=== PATIENT | female | born 1950 | race Caucasian/White ===

== ENCOUNTER 2017-03-25 17:26 | Observation (INO) ==
[2017-03-25] MEDS ORDERED: Naloxone 0.4 MG/ML INJ IVP PRN (22:40)
[2017-03-25] MEDS ORDERED: Acetaminophen 325 MG TABLET PO PRN (22:40)
[2017-03-25] MEDS ORDERED: ALPRAZolam 0.5 MG TABLET PO PRN (22:44)
[2017-03-25] MEDS ORDERED: cloNIDine HCl 0.1 MG TABLET PO PRN (22:44)
[2017-03-25] MEDS ORDERED: Dextrose Gel 15 GM PO PRN ×2 (23:22)
[2017-03-25] MEDS ORDERED: *HR* Dextrose 50 % in Water (Syg) 50 ML SYRINGE IVP PRN (23:22)
[2017-03-25] MEDS ORDERED: D5% in Water 1,000 ML IVC PRN (23:22)
--- NOTE | 2017-03-25 23:33 | Internal Med History&Physical ---
Date of Encounter: 03/25/17 Time of Encounter: 21:00 Assessment and Plan (1) NSTEMI (non-ST elevated myocardial infarction) Current visit: Yes Status: Acute patient has trend up of troponin from 0.07 to 0.27. She denies chest pain or shortness of breath. Minimal EKG change without ST elevation. - Consider NSTEMI because significant increase in troponin. - Put patient on heparin drip. - ASA 325mg po once followed by 81mg daily - Continuous cardiac monitoring. - Continue beta jarret - Consult cardiology in AM. (2) Diabetes Current visit: Yes Status: Acute Sliding scale coverage Qualifiers: Diabetes mellitus type: type 2 Diabetes mellitus complication status: without complication Diabetes mellitus [facility] insulin use: without computer terminal operator use Qualified Code(s): E11.9 - Type 2 diabetes mellitus without complications (3) Hypertension Current visit: Yes Status: Acute continue home medications Qualifiers: Hypertension type: essential hypertension Qualified Code(s): I10 - Essential (primary) hypertension (4) DVT prophylaxis Current visit: Yes Status: Acute Heparin drip (5) Tremor of face and hands Current visit: Yes Status: Acute etiology is undetermined. Patient is on medication for essential tremor. Dr[facility] (6) Elevated troponin I level Current visit: No Status: Acute as above. Will continue check troponin for total 3 sets Internal Medicine - H&P: HPI Chief complaint: Tremor Admitted From: Home Plans for Post Hospital Care: Home History of present illness: Ms. Mcgill is a 66 year old female transferred from [place] emergency room because of increased tremor. Patient said that she has chronic tremor since last October. She follow up with neurology Dr. Marin as outpatient. Today, her tremor is getting worse, her jaw is shaking which makes her difficult to talk. She went to [place] emergency and was found elevated troponin. Patient denies chest pain, shortness of breath, nausea, or vomiting. She has no palpitation or diaphoresis. Her EKG shows questionable lateral ischemia. Patient was admitted for further management. I discussed the CODE STATUS with patient. She is a DNR/DNI. Past Med Surg Social Fam HX - Past Medical History Medical history: diabetes, hyperlipidemia, hypertension Psychiatric history: anxiety - Past Surgical History Surgical History: cataract, hysterectomy - Social History Smoking Status: Current every day smoker Packs per day: 1 Smokeless Tobacco Status: No Alcohol use: none Drug use: none - Family History Mother Hx Family Cardiac Disorders: Yes Father Hx Family Cardiac Disorders: Yes Internal Medicine - H&P: Meds Alprazolam [Xanax 0.5 MG Tablet] 0.5 mg PO BID PRN 03/25/17 [History] CloNIDine HCl [Kapvay] 0.1 mg PO TID PRN 03/25/17 [History] Gemfibrozil [Lopid] 600 mg PO BIDWM 03/25/17 [History] Glimepiride [Amaryl] 4 mg PO QAM 03/25/17 [History] Losartan Potassium [Cozaar] 100 mg PO DAILY 03/25/17 [History] Metformin HCl [Glucophage] 1,000 mg PO BID 03/25/17 [History] Metoprolol [Lopressor] 100 mg PO BID 03/25/17 [History] Primidone [Mysoline] 50 mg PO BID 03/25/17 [History] Sertraline [Zoloft] 50 mg PO DAILY 03/25/17 [History] Allergies lisinopril Allergy (Verified 03/25/17 20:01) Cough All Systems PM: A 10-system review of systems was performed and is negative for pertinent findings except as documented above in the HPI. - Constitutional Vitals: Temp Pulse Resp BP Pulse Ox 97.7 F 60 15 116/50 93 03/25/17 23:30 03/25/17 23:30 03/25/17 23:30 03/25/17 23:30 03/25/17 23:30 General appearance: Present: A&O X 3, no acute distress, answers questions appropriately - Head Head exam: Present: atraumatic, normocephalic - Eye Eye exam: Present: PERRL, conjuntiva pink, sclera anicteric Pupils: Present: PERRL - Neck Neck exam general surgery: Present: supple, trachea midline. Absent: lymphadenopathy - Respiratory Respiratory exam: Present: CTAB. Absent: accessory muscle use, rales, rhonchi, wheezes - Cardiovascular Cardiovascular exam: Present: RRR, +S1, +S2. Absent: diastolic murmur, gallop, rubs, systolic murmur - GI/Abdominal GI/Abdominal exam: Present: normal bowel sounds, soft, no peritoneal signs. Absent: distended, tenderness - Extremities Exam Extremities exam: Present: warm, radial pulses palpable and symetrical. Absent : calf tenderness, cyanotic, pedal edema - Neurological Exam Neurological exam: Present: CN II-XII intact, oriented X3, no focal deficits. Absent: pronater drift, facial droop, speech deficit - Skin Skin exam: Present: dry, intact Internal Med - H&P Results - Labs CBC & Chem 7: 03/26/17 00:59 03/26/17 00:59 - EKG Data -: EKG Interpreted by Myself EKG shows normal: sinus rhythm, ST-T waves (Nonspecific ST-T change, questionable lateral ischemia.) Rate: normal
[2017-03-26] MEDS ORDERED: *HR* Heparin 5,000 UNIT/ML VIAL IVP ONE (00:19)
[2017-03-26] MEDS: Metoprolol 100 MG TABLET PO SCH ×3 (00:21→20:07)
[2017-03-26 01:06] LABS: Basophils # 0.1 K/mcL (0.0-0.2); Basophils % 0.7 %; Eosinophils # 0.3 K/mcL (0.0-0.6); Eosinophils % 3.1 %; Hematocrit 41.5 % (35.3-44.9); Hemoglobin 13.9 g/dL (11.5-15.4); Immature Granulocytes % 0.2 % (0-4); Immature Platelets 4.4 % (1.1-6.1); Lymphocytes # 3.6 K/mcL (0.6-4.6); Lymphocytes % 41.1 %; Mean Corpuscular HGB Conc 33.5 g/dL (31.6-35.5); Mean Corpuscular Hemoglobin 29.4 pg (28.0-33.3); Mean Corpuscular Volume 87.7 fL (83.0-100.0); Mean Platelet Volume 9.8 fL (9.4-12.4); Monocytes # 0.4 K/mcL (0.0-1.3); Neutrophils # 4.3 K/mcL (1.6-8.9); Platelet Count 238 K/mcL (140-400); Red Blood Count 4.73 M/mcL (3.82-4.97); Red Cell Distribution Width 13.4 % (11.5-14.5); Segmented Neutrophils % 49.9 %
[2017-03-26] MEDS: Heparin 25,000 UNIT/500 ML D5W 25,000 UNIT/500 ML MLS IVC SCH (01:17)
[2017-03-26 01:19] LABS: INR 1.1; Prothrombin Time 11.9 Seconds (9.4-12.1)
[2017-03-26] MEDS: 0.9 % Sodium Chloride 1,000 ML IVC SCH ×2 (01:19→14:45)
[2017-03-26] MEDS: Insulin LISPRO 300 UNITS/3 ML VIAL SQ SCH ×4 (01:20→17:44)
[2017-03-26 01:21] LABS: BUN/Creatinine Ratio 27 (6-26); Blood Urea Nitrogen 22 mg/dL (7-20); Carbon Dioxide 26 mEq/L (19-29); Chloride 106 mEq/L (98-109); Chol/HDL Ratio 8.6 (0-4.9); Cholesterol 189 mg/dL (< 200); Glucose 100 mg/dL (70-99); HDL Cholesterol 22 mg/dL (40-59); LDL Cholesterol,Calculated 113 mg/dL (0-99); Magnesium 1.9 mg/dL (1.6-2.6); Osmolality,Calculated 295 (280-300); Phosphorous 3.9 mg/dL (2.3-4.7); Sodium 141 mEq/L (136-145); Triglycerides 268 mg/dL (< 150); eGFR For African Americans > 60 (> 60); eGFR For Non-African Americans > 60 (> 60)
[2017-03-26 01:22] LABS: Activated Partial Thrombo Time 37.6 Seconds (26.0-36.0)
[2017-03-26] MEDS ORDERED: Aspirin 325 MG TABLET PO ONE (02:24)
[2017-03-26] MEDS ORDERED: *HR* Heparin 5,000 UNIT/ML VIAL SQ SCH (06:00)
[2017-03-26] MEDS ORDERED: Insulin LISPRO 300 UNITS/3 ML VIAL SQ SCH ×2 (07:30→21:00)
[2017-03-26] MEDS: *HR* Heparin 5,000 UNIT/ML VIAL IVP PRN ×3 (08:20→23:04)
[2017-03-26] MEDS: Primidone 50 MG TABLET PO SCH ×2 (08:21→20:07)
--- NOTE | 2017-03-26 11:05 | Cardiology Consult Note ---
<Basim Story - Last Filed: 03/26/17 10:59> Date of Encounter: 03/26/17 Time of Encounter: 10:59 Assessment and Plan (1) NSTEMI (non-ST elevated myocardial infarction) Current Visit: Yes Status: Acute Elevated troponin 0.07, 0.27, 0.13. She denies chest pain or shortness of breath. NSTEMI vs demand ischemia. Pt presented with severe tremors. Multiple cardiac risk factors including family history, tobacco abuse, Dm type II, HTN, HLD. Continue asa and bb. Check TTE. On heparin gtt for ACS protocal. Further recommendation to follow. (2) Hypertension Current Visit: Yes Status: Acute Moderate HTN. Adjust home medications as needed. Low sodium diet. Qualifiers: Hypertension type: essential hypertension Qualified Code(s): I10 - Essential (primary) hypertension Discussion w patient/family: The assessment and plan as outlined above was discussed with the patient and/or family members who expressed understanding and agreement. All questions were answered. Thank you for involving us in the care of your patient. Please call with any questions. History of Present Illness Consult date: 03/26/17 Consult reason: Elevated troponin Chief complaint: Tremors History of present illness: Ms. Mcgill is a 66 year old female with a history of hypertension, diabetes type II, and tobacco use who presents with intermittent tremors in her upper extremities and jaw. Symptoms started last October and she recently saw neurology in the outpt setting. Yesterday her tremors occured suddenly and wear so severe she was unable to talk. she denies chest anuradha or SOB. Denies palpitations. Denies orthopnea, PND, or edema. Cardiology consulted for elevated troponin, 0.07, 0.27, 0.13. EKG showed sinus arrhythmia and no ischemic EKG changes. Initial lab work revealed normal kidney function. CBC was normal. B/p moderately elevated 150/60. elevated Denies h/o CAD or previous cardiac work-up. Past Med Surg Social Fam HX - Past Medical History Attestation: Yes The following information was validated with the patient. Medical history: diabetes, hyperlipidemia, hypertension Psychiatric history: anxiety - Past Surgical History Surgical History: cataract, hysterectomy - Social History Smoking Status: Current every day smoker Packs per day: 1 Smokeless Tobacco Status: No Alcohol use: none Drug use: none - Family History Mother Hx Family Cardiac Disorders: Yes Father Hx Family Cardiac Disorders: Yes Medications and Allergies Alprazolam [Xanax 0.5 MG Tablet] 0.5 mg PO BID PRN 03/25/17 [History] CloNIDine HCl [Kapvay] 0.1 mg PO TID PRN 03/25/17 [History] Gemfibrozil [Lopid] 600 mg PO BIDWM 03/25/17 [History] Glimepiride [Amaryl] 4 mg PO QAM 03/25/17 [History] Losartan Potassium [Cozaar] 100 mg PO DAILY 03/25/17 [History] Metformin HCl [Glucophage] 1,000 mg PO BID 03/25/17 [History] Metoprolol [Lopressor] 100 mg PO BID 03/25/17 [History] Primidone [Mysoline] 50 mg PO BID 03/25/17 [History] Sertraline [Zoloft] 50 mg PO DAILY 03/25/17 [History] Allergies lisinopril Allergy (Verified 03/25/17 20:01) Cough All Systems Review: A 10-system review of systems was performed and is negative for pertinent findings except as documented above in the HPI. Physical Examination Vital Signs, Last 4 Hours Pulse Ox 03/26/17 08:15 94 General: Conversant, No Apparent Distress HEENT: Atraumatic, Normocephaly, Mucus Membranes Moist Neck: No JVD, Normal carotid pulses Cardiac: Reg Rate and Rhythm, Normal S1 and S2, No Murmur Lungs: Normal Breath Sounds, No Wheeze, Rales, Rhonchi Neuro: Alert and responsive, No focal deficits noted Abdomen: Soft, Non-Tender Skin: No rashes noted on visualized skin Musculoskeletal: No Chest Wall Tenderness Extremities: No Clubbing, No Cyanosis, No Edema, Normal Pulses, Other (Mild tremors noted. ) Results 03/26/17 00:59 03/26/17 00:59 Lab Results 03/25/17 03/26/17 03/26/17 23:33 00:59 00:59 WBC 8.7 Hgb 13.9 D Hct 41.5 Plt Count 238 INR APTT Sodium 141 Potassium 4.0 Chloride 106 Carbon Dioxide 26 BUN 22 H Creatinine 0.83 Glucose 100 H Calcium 9.0 Magnesium 1.9 Troponin I 0.27 H* B-Natriuretic Peptide 03/26/17 03/26/17 03/26/17 00:59 00:59 05:10 WBC Hgb Hct Plt Count INR 1.1 APTT 37.6 H Sodium Potassium Chloride Carbon Dioxide BUN Creatinine Glucose Calcium Magnesium Troponin I 0.13 H* B-Natriuretic Peptide 127 H 03/26/17 07:49 WBC Hgb Hct Plt Count INR APTT 38.6 H Sodium Potassium Chloride Carbon Dioxide BUN Creatinine Glucose Calcium Magnesium Troponin I B-Natriuretic Peptide - Imaging and Cardiology Echo: pending - EKG Interpretation EKG results cardiology: personally reviewed (Sinus arrhythmia. No acute ST changes.) Consult Discharge Plan - Plan Referrals: Rowan Diaz MD [Primary Care Provider] - <JoelameliaSara - Last Filed: 03/26/17 14:30> Date of Encounter: 03/26/17 Assessment and Plan Discussion w patient/family: The assessment and plan as outlined above was discussed with the patient and/or family members who expressed understanding and agreement. All questions were answered. Thank you for involving us in the care of your patient. Please call with any questions. History of Present Illness History of present illness: Ms. Mcgill is a 66 year old female All Systems Review: A 10-system review of systems was performed and is negative for pertinent findings except as documented above in the HPI. Physical Examination Vital Signs, Last 4 Hours Temp Pulse Resp BP Pulse Ox 03/26/17 11:58 98.1 F 68 16 130/87 94 Results 03/26/17 00:59 03/26/17 00:59 Lab Results 03/25/17 03/26/17 03/26/17 23:33 00:59 00:59 WBC 8.7 Hgb 13.9 D Hct 41.5 Plt Count 238 INR APTT Sodium 141 Potassium 4.0 Chloride 106 Carbon Dioxide 26 BUN 22 H Creatinine 0.83 Glucose 100 H Calcium 9.0 Magnesium 1.9 Troponin I 0.27 H* B-Natriuretic Peptide 03/26/17 03/26/17 03/26/17 00:59 00:59 05:10 WBC Hgb Hct Plt Count INR 1.1 APTT 37.6 H Sodium Potassium Chloride Carbon Dioxide BUN Creatinine Glucose Calcium Magnesium Troponin I 0.13 H* B-Natriuretic Peptide 127 H 03/26/17 03/26/17 07:49 11:15 WBC Hgb Hct Plt Count INR APTT 38.6 H Sodium Potassium Chloride Carbon Dioxide BUN Creatinine Glucose Calcium Magnesium Troponin I 0.21 H* B-Natriuretic Peptide - Attending Attestation I examined this patient and my medical decision-making was reviewed with the BUNDLE COLLECTOR/PA/Advanced Practice Nurse/Resident Physician. I agree with the documented findings, disposition and treatment plan. Ms. Mcgill presented for worsening tremors and was incidentally discovered to have elevated troponin peak 0.27. Patient denied chest pain to our Nurse Practitioner. There are no concerning ECG findings. However, she has risk factors for CAD including HTN, HPL, DM and smoking. We have recommended considering a LHC. I attempted to discuss this with the patient with her daughter at the bedside. However, the patient was sleeping throughout most of the conversation (CT head negative). I was unable to educate the patient about LHC or consent her for the procedure. The daughter also said it was unlikely that the patient would reverse her code status for the procedure. Therefore, we have decided to pursue conservative management at this time. We will discuss further with the patient when she is more awake.
[2017-03-26] MEDS ORDERED: *HR* LORazepam 2 MG/ML VIAL IVP STA (11:12)
--- NOTE | 2017-03-26 13:00 | Internal Med Progress Note ---
Date of Encounter: 03/26/17 Time of Encounter: 09:30 - Assessment and plan (1) NSTEMI (non-ST elevated myocardial infarction) Current Visit: Yes Status: Acute Assessment and plan: Troponins have trended down but has since trended back up. Troponin 0.07, 0.27 , 0.13, and now 0.21. Cardiology is on board and the patient was placed on a heparin drip. Plan is likely for a left heart catheter today. Patient denies chest pain or shortness of breath but remains emotionally upset on examination. Echocardiogram pending. (2) Elevated troponin I level Current Visit: No Status: Acute (3) Tremor of face and hands Current Visit: Yes Status: Chronic Assessment and plan: Acute on chronic however worsened. Patient is stating that yesterday, she was sitting on her bed smoking a cigarette and looking out the window. She states she finished her cigarette, put it out, and she states she was unable to speak. She states that family was present and stated that they could not understand what she was trying to say. Patient is extremely tearful and scared stating this event had really scared and more read her. On examination, patient with whole body tremors and at times, her bottom jaw is quivering to the point where I cannot understand what she is saying. When she takes a deep breath and calms down more, she is intelligible but she remains very upset and tearful. Will give one-time dose of IV lorazepam and continue her regular home anxiety medications. Neurology on board, appreciate their recommendations. She appears to follow closely outpatient with Dr. Marin. Head CT negative. Head CT impressions from [place] [facility]: No acute intracranial abnormality. Trace paranasal sinus disease. (4) HLD (hyperlipidemia) Current Visit: Yes Status: Chronic Assessment and plan: Lipid panel abnormal. Triglycerides 268. She is on gemfibrozil, recommend continue low-cholesterol diet Qualifiers: Hyperlipidemia type: unspecified Qualified Code(s): E78.5 - Hyperlipidemia , unspecified (5) Tobacco abuse Current Visit: Yes Status: Chronic Assessment and plan: Patient stating she smokes approximately one pack per day. She states that she is very interested in quitting smoking however she states that she is too anxious at this time to discuss smoking cessation. (6) Diabetes Current Visit: Yes Status: Chronic Assessment and plan: Well-controlled with an A1c 2 months ago of 5.5%. Continue sliding scale while admitted. Qualifiers: Diabetes mellitus type: type 2 Diabetes mellitus complication status: without complication Diabetes mellitus [facility] insulin use: without vp customer service use Qualified Code(s): E11.9 - Type 2 diabetes mellitus without complications (7) Hypertension Current Visit: Yes Status: Chronic Assessment and plan: Hypertensive this morning however the patient was shaking and crying. She is currently normotensive, will continue to trend and adjust medications as indicated. At home, patient is on losartan 100 mg daily, metoprolol 100 mg twice a day, clonidine 0.1 mg 3 times a day as needed. Qualifiers: Hypertension type: essential hypertension Qualified Code(s): I10 - Essential (primary) hypertension (8) DVT prophylaxis Current Visit: Yes Status: Acute Assessment and plan: On a heparin drip currently - Subjective Interval history: Patient seen and examined. On examination, patient sitting upright in her bed. Patient alert and oriented 3 and currently tremoring. She is extremely tearful and upset stating she is very scared over the episode that happened yesterday regarding her inability to speak. She denies pain or shortness of breath at this time but remains very tearful. - Constitutional Vitals: Temp Pulse Resp BP Pulse Ox 98.1 F 68 16 130/87 94 03/26/17 11:58 03/26/17 11:58 03/26/17 11:58 03/26/17 11:58 03/26/17 11:58 General appearance: Present: mild distress (emotional), A&O X 3, pleasant, answers questions appropriately - Head Head exam: Present: atraumatic, normocephalic - Eye Eye exam: Present: PERRL, conjuntiva pink, sclera anicteric Pupils: Present: PERRL - Neck Neck exam general surgery: Present: supple, trachea midline. Absent: lymphadenopathy - Respiratory Respiratory exam: Present: CTAB. Absent: accessory muscle use, rales, respiratory distress, rhonchi, wheezes - Cardiovascular Cardiovascular exam: Present: RRR, +S1, +S2. Absent: diastolic murmur, gallop, rubs, systolic murmur - GI/Abdominal GI/Abdominal exam: Present: normal bowel sounds, soft, no peritoneal signs. Absent: distended, tenderness - Extremities Exam Extremities exam: Present: warm, radial pulses palpable and symetrical. Absent : calf tenderness, cyanotic, pedal edema - Neurological Exam Neurological exam: Present: alert, CN II-XII intact, oriented X3, no focal deficits, strengths equal and symetr throughout. Absent: pronater drift, facial droop, speech deficit - Psychiatric Psychiatric exam: Present: anxious - Expanded Psychiatric Exam Focused psych exam: Present: restlessness - Skin Skin exam: Present: dry, intact, normal color, warm Internal Medicine: Result - Labs CBC & Chem 7: 03/26/17 00:59 03/26/17 00:59 Labs: Short CBC 03/26/17 Range/Units 00:59 WBC 8.7 (4.3-11.1) K/mcL Hgb 13.9 D (11.5-15.4) g/dL Hct 41.5 (35.3-44.9) % Plt Count 238 (140-400) K/mcL Neutrophils # 4.3 (1.6-8.9) K/mcL BMP 03/26/17 00:59 Sodium 141 Potassium 4.0 Chloride 106 Carbon Dioxide 26 BUN 22 H Creatinine 0.83 Glucose 100 H Calcium 9.0 Cardiac Enzymes 03/25/17 03/26/17 03/26/17 Range/Units 23:33 05:10 11:15 Troponin I 0.27 H* 0.13 H* 0.21 H* (0-0.03) ng/mL - ABG Interpretation ABG results: PT/INR, D-dimer PT 11.9 Seconds (9.4-12.1) 03/26/17 00:59 Consult Discharge Plan - Plan Referrals: Rowan Diaz MD [Primary Care Provider] -
--- NOTE | 2017-03-26 17:43 | Neurology - Consult Note ---
Date of Encounter: 03/26/17 Time of Encounter: 17:40 Assessment and Plan (1) Tremor of face and hands Current Visit: Yes Status: Chronic I am convinced that this tremor that she is experiencing is not accentuated essential tremor. I am not convinced that this tremor is of any other consequence. Certainly is not due to Parkinson's disease, it is not clearly some mild clonus. It is not trismus. She is very anxious. I will simply increase the dosage of her primidone and follow-up with her as an outpatient. History of Present Illness HPI: Ms. Mcgill is a 66 year old female who is known to me secondary to a history of essential tremors. She was admitted to the [facility] because of increased tremulousness of her jaw as well as elevated troponins. She denies any chest pain or shortness of breath. Apparently she was simply sitting on the bed smoking a cigarette when she began to again anxious and increase jaw tremor. I have seen her in my office and ultimately I do not feel that these tremors are due to any type of movement disorder specifically. She has tremulousness in the hands chin as well as the voice. Apparently her mother also had tremors. She has a known history of anxiety. Apparently she had been on Klonopin in the past and "they had trouble getting me off that" at this time she seems a bit more relaxed and is currently undergoing an echocardiogram. She has no headaches has no focal or lateralizing deficits. Past Med Surg Social Fam HX - Past Medical History Medical history: diabetes, hyperlipidemia, hypertension Psychiatric history: anxiety - Past Surgical History Surgical History: cataract, hysterectomy - Social History Smoking Status: Current every day smoker Packs per day: 1 Smokeless Tobacco Status: No Alcohol use: none Drug use: none - Family History Mother Hx Family Cardiac Disorders: Yes Father Hx Family Cardiac Disorders: Yes Medications and Allergies Alprazolam [Xanax 0.5 MG Tablet] 0.5 mg PO BID PRN 03/25/17 [History] CloNIDine HCl [Kapvay] 0.1 mg PO TID PRN 03/25/17 [History] Gemfibrozil [Lopid] 600 mg PO BIDWM 03/25/17 [History] Glimepiride [Amaryl] 4 mg PO QAM 03/25/17 [History] Losartan Potassium [Cozaar] 100 mg PO DAILY 03/25/17 [History] Metformin HCl [Glucophage] 1,000 mg PO BID 03/25/17 [History] Metoprolol [Lopressor] 100 mg PO BID 03/25/17 [History] Primidone [Mysoline] 50 mg PO BID 03/25/17 [History] Sertraline [Zoloft] 50 mg PO DAILY 03/25/17 [History] Allergies lisinopril Allergy (Verified 03/25/17 20:01) Cough All Systems: A 10-system review of systems was performed and is negative for pertinent findings except as documented above in the HPI. Review of Systems: 10 point review of systems is consistent with a history of present illness otherwise negative. Physical Examination - Vital Signs Vital Signs: Initial Vital Signs Pulse Ox 94 03/25/17 19:09 - Constitutional General appearance: other (Patient does appear to be somewhat anxious.) - Neurologic Detailed motor examination: full strength in all major muscle groups, other ( Jaw. Tremor is present) Motor examination - right side: 5/5: deltoids, biceps, triceps, wrist flexion, wrist extension, catalog specialist, hip flexors, tibialis Anterior, quadriceps, toe extension (EHL), plantarflexion Motor examination - left side: 5/5: deltoids, biceps, triceps, wrist flexion, wrist extension, hip flexors, catalog specialist, quadriceps, tibialis Anterior, toe extension (EHL), plantarflexion Detailed sensory examination: intact Reflexes: Biceps: 2+, Triceps: 2+, Brachioradialis: 2+, Patella: 2+, Achilles: 2 + Mental Status Examination: awake, alert, oriented to person, oriented to place, oriented to time, follows commands appropriately, answers questions appropriately, no agnosia, no aphasia, no aproxia Cranial nerve examination: PERRL, EOMI, visual hilario intact, corneal reflexes brisk symmetrically, sensory to face intact, mastication intact, no facial asymmetry is present, no dysarthria, hearing is intact symmetrically, soft palate elevates bilaterally upon phonation, gag reflex intact, flexes SCM and trapezius muscles symmetrically with full power, tongue protrudes midline, no atrophy or facial fasiculations present Cerebellar examination: no dysmetria, performs finger to nose and heel to salcedo symmetrically without ataxia, no gait ataxia, no truncal ataxia, no difficulty with rapid alternating movements Results - Laboratory Findings CBC and BMP: 03/26/17 00:59 03/26/17 00:59 Abnormal lab findings: Abnormal lab results APTT 42.4 Seconds (26.0-36.0) H 03/26/17 14:02 BUN 22 mg/dL (7-20) H 03/26/17 00:59 BUN/Creatinine Ratio 27 (6-26) H 03/26/17 00:59 Glucose 100 mg/dL (70-99) H 03/26/17 00:59 Troponin I 0.21 ng/mL (0-0.03) H* 03/26/17 11:15 B-Natriuretic Peptide 127 pg/mL (0-100) H 03/26/17 00:59 Triglycerides 268 mg/dL (< 150) H 03/26/17 00:59 LDL Cholesterol, Calc 113 mg/dL (0-99) H 03/26/17 00:59 VLDL Cholesterol, Calc 54 mg/dL (< 31) H 03/26/17 00:59 HDL Cholesterol 22 mg/dL (40-59) L 03/26/17 00:59 Cholesterol/HDL Ratio 8.6 (0-4.9) H 03/26/17 00:59 Consult Discharge Plan - Plan Referrals: Rowan Diaz MD [Primary Care Provider] -
[2017-03-27] MEDS: Insulin LISPRO 300 UNITS/3 ML VIAL SQ SCH ×3 (00:45→11:55)
[2017-03-27] MEDS: Heparin 25,000 UNIT/500 ML D5W 25,000 UNIT/500 ML MLS IVC SCH ×2 (02:35→05:00)
[2017-03-27] MEDS: 0.9 % Sodium Chloride 1,000 ML IVC SCH (04:06)
[2017-03-27 06:33] LABS: Basophils % 0.5 %; Eosinophils # 0.3 K/mcL (0.0-0.6); Eosinophils % 3.9 %; Hematocrit 41.6 % (35.3-44.9); Hemoglobin 14.1 g/dL (11.5-15.4); Immature Granulocytes % 0.3 % (0-4); Lymphocytes # 3.4 K/mcL (0.6-4.6); Lymphocytes % 42.7 %; Mean Corpuscular HGB Conc 33.9 g/dL (31.6-35.5); Mean Corpuscular Hemoglobin 29.4 pg (28.0-33.3); Mean Corpuscular Volume 86.7 fL (83.0-100.0); Mean Platelet Volume 9.9 fL (9.4-12.4); Monocytes # 0.3 K/mcL (0.0-1.3); Monocytes % 3.9 %; Neutrophils # 3.9 K/mcL (1.6-8.9); Platelet Count 209 K/mcL (140-400); Red Cell Distribution Width 13.2 % (11.5-14.5); Segmented Neutrophils % 48.7 %
[2017-03-27 06:48] LABS: BUN/Creatinine Ratio 20 (6-26); Blood Urea Nitrogen 14 mg/dL (7-20); Calcium 8.9 mg/dL (8.6-10.8); Carbon Dioxide 24 mEq/L (19-29); Chloride 109 mEq/L (98-109); Glucose 114 mg/dL (70-99); Osmolality,Calculated 293 (280-300); Sodium 141 mEq/L (136-145); eGFR For African Americans > 60 (> 60); eGFR For Non-African Americans > 60 (> 60)
[2017-03-27] MEDS: *HR* Heparin 5,000 UNIT/ML VIAL IVP PRN (07:05)
[2017-03-27] MEDS: Primidone 50 MG TABLET PO SCH (08:36)
[2017-03-27] MEDS: Metoprolol 100 MG TABLET PO SCH (08:37)
[2017-03-27] MEDS ORDERED: Aspirin Enteric Coated 81 MG Tablet PO SCH (09:00)
--- NOTE | 2017-03-27 09:46 | ECHO - Doppler Report ---
Echo with Saline Contrast Name: Brandie Mcgill Date of Study: 03/26/2017 Date: 1950 Ht: 66.0 in Medical Record#: [id number] Age: 66 Wt: 160.0 lb Gender: Female BSA: 1.82 Order #: [id number] Location: [facility] Room #: [id number] Reading Physician: Sara Estevez DO Finish Production Manager: Carol Cornejo Ordering Physician: Basim Story CNP Primary Physician: Rowan Diaz MD Indications: Elevated troponin Impressions: LVEF 65%. Normal left ventricular size and systolic function. Moderate concentric hypertrophy of the left ventricle. There is evidence of mild diastolic dysfunction of the left ventricle. Normal right ventricular size and function. No significant valvular dysfunction. No pulmonary hypertension. Left Ventricular Wall Motion: Rest Echo Findings All wall segments showed normal motion. Findings: Study Quality * Technically adequate exam. ECG Findings * Sinus rhythm with BBB. Left Ventricle * Moderate concentric left ventricular hypertrophy. * Mild left ventricular diastolic dysfunction. * LVEF 65%. Aorta * Normally sized aortic root. Aortic Valve * No aortic regurgitation. * Trileaflet aortic valve. * Normal aortic valve structure. * No aortic stenosis. Mitral Valve * Normal mitral valve structure. * No mitral stenosis. * Trace mitral regurgitation. Tricuspid Valve * Tricuspid valve not well visualized. * Trace tricuspid regurgitation. * Estimated RA pressure is 3 mmHg. * Estimated RVSP is 15 mmHg. * No pulmonary hypertension. Pulmonic Valve * Pulmonic valve is not well visualized. * No pulmonic stenosis. * No pulmonic regurgitation. Pulmonary Artery * Pulmonary artery not well visualized. Right Ventricle * Normal right ventricular structure and function. Right Atrium * Normal right atrial size. Left Atrium * Normal left atrial size. Pericardium * There is no pericardial effusion present. Interatrial Septum * No evidence of PFO by color Doppler. * No evidence of PFO with agitated saline contrast. IVC * Normal IVC dimensions and inspiratory collapse. History Hypertension Diabetes Hypercholesteremia History of Smoking Years 40 Packs 1 Family History of CAD History of CAD/PTCA Contrast: Agitated saline 20 ml. Measurements: BP: 155/ 72 2D Normal Values RVIDd: 3.00 cm <2.7 cm IVSd: 1.50 cm 0.6 - 1.0 cm LVIDd: 3.80 cm 3.7 - 5.6 cm LVPWd: 1.50 cm 0.6 - 1.1 cm LVIDs: 2.00 cm 1.5 - 3.6 cm AO: 3.10 cm < 4.0 cm LA: 3.60 cm 2.0 - 4.0cm %FS: 47.40 cm >25 % LA volume: 54 Mitral Valve Peak E:.76 m/sec Peak A:1.07 m/sec E/A Ratio:0.7 Peak E' Lat Alcon:6.53 cm/s Peak E' Med Alcon:4.68 cm/s E/E' Lat Ratio:11.6 E/E' Med Ratio:16.2 Tricuspid Valve TV Regurg Peak Grad: 12.00mmHg TV Regurg Peak Alcon: 1.75m/sec Updated by Sara Estevez on 03/27/2017 9:41:50 AM electronically signed on 03/27/2017 9:42:26 AM with status of Final Wall Motion Rosa: 1=Normal, 2=Hypokinesis, 3=Akinesis, 4=Dyskinesis, 5=Aneurysmal, 6=Hyperkinetic, X=Not Visualized (Blank)=Missing
[2017-03-27 11:51] VITALS: BP 174/74
--- NOTE | 2017-03-27 12:34 | Discharge Summary ---
Date of Encounter: 03/27/17 Time of Encounter: 11:00 - Discharge Diagnosis (1) NSTEMI (non-ST elevated myocardial infarction) Priority: Primary Status: Acute Comments: Troponins had trended down but trended back up. Troponin 0.07, 0.27, 0.13, and now 0.21. Cardiology was brought on board and the patient was placed on a heparin drip. Plan was initially for a left heart catheter however the patient stated that she did not want one and she did not want to change her CODE STATUS. Echocardiogram was unremarkable with preserved ejection fraction of 65% . Patient never had any chest pain or shortness of breath. (2) Elevated troponin I level Priority: Primary Status: Acute (3) Tremor of face and hands Priority: Secondary Status: Chronic Comments: Acute on chronic however worsened. Over the course of her too night admission, it was clear that the patient suffers from severe anxiety and has a lengthy history of panic attacks. Seen by neurology who recommended increasing her primidone and following up outpatient. (4) HLD (hyperlipidemia) Priority: Secondary Status: Chronic Comments: Lipid panel abnormal. Triglycerides 268. She is on gemfibrozil, we will add low-dose statin. Recommend low-cholesterol diet Qualifiers: Hyperlipidemia type: unspecified Qualified Code(s): E78.5 - Hyperlipidemia , unspecified (5) Tobacco abuse Priority: Secondary Status: Chronic Comments: Patient stating that she is interested in stopping smoking but declined any counseling or nicotine replacement therapy (6) Diabetes Priority: Secondary Status: Chronic Comments: Well-controlled with an A1c 2 months ago of 5.5%. Follow-up outpatient Qualifiers: Diabetes mellitus type: type 2 Diabetes mellitus complication status: without complication Diabetes mellitus termite technician insulin use: without termite technician use Qualified Code(s): E11.9 - Type 2 diabetes mellitus without complications (7) Hypertension Priority: Secondary Status: Chronic Comments: Hypertensive at times that coincided with the patient's periods of increased anxiety and shaking. At home, patient is on losartan 100 mg daily, metoprolol 100 mg twice a day, clonidine 0.1 mg 3 times a day as needed. Recommend daily blood pressure checks at home, keeping a log, and following up outpatient. No changes were made to her medications at this time given that she was emotionally upset during most of this admission. Qualifiers: Hypertension type: essential hypertension Qualified Code(s): I10 - Essential (primary) hypertension (8) DVT prophylaxis Priority: Primary Status: Acute Comments: was on a heparin gtt during this admission. - Discharge Medications Prescriptions: Aspirin Enteric Coated [Aspirin EC] 81 mg PO DAILY #30 tablet. Atorvastatin Calcium [Lipitor] 20 mg PO HS #30 tablet Home Medications: Alprazolam [Xanax 0.5 MG Tablet] 0.5 mg PO BID PRN 03/25/17 [History] CloNIDine HCl [Kapvay] 0.1 mg PO TID PRN 03/25/17 [History] Gemfibrozil [Lopid] 600 mg PO BIDWM 03/25/17 [History] Glimepiride [Amaryl] 4 mg PO QAM 03/25/17 [History] Losartan Potassium [Cozaar] 100 mg PO DAILY 03/25/17 [History] Metformin HCl [Glucophage] 1,000 mg PO BID 03/25/17 [History] Metoprolol [Lopressor] 100 mg PO BID 03/25/17 [History] Primidone [Mysoline] 50 mg PO BID 03/25/17 [History] Sertraline [Zoloft] 50 mg PO DAILY 03/25/17 [History] Aspirin Enteric Coated [Aspirin EC] 81 mg PO DAILY #30 tablet. 03/27/17 [Rx] Atorvastatin Calcium [Lipitor] 20 mg PO HS #30 tablet 03/27/17 [Rx] Allergies/Adverse Reactions: Allergies lisinopril Allergy (Verified 03/25/17 20:01) Cough Procedures/tests Complete & Pending: Procedures Performed prior 72 hours Category Date Time Status ECG 12 lead ECG [ECG] AM 0600 Y 03/26/17 06:00 Ordered EV echocardiogram Routine Y 03/26/17 09:06 Completed Date of admission: 03/25/17 19:00 Primary care physician: Rowan Diaz Consults: 03/26/17 00:21 Consult to Cardiology [CONS] Routine Comment: Consulting Provider: [facility] Reason for Consult: NSTEMI? elevated troponin from 0.07 to 0.27. Pt has no chest pain. Call Completed: No 03/26/17 02:34 Consult to Neurology [CONS] Routine Consulting Provider: [facility] Reason for Consult: Tremor. Dr Marin informed by [place] [facility] Call Completed: Yes Discharging clinician: Maria E Hurt Anticipated date of discharge: 03/27/17 - Patient Status Disposition: Home, Self-Care Condition: Fair Functional capacity at discharge: independent ambulation Overall status at discharge: patient is back to baseline - Discharge Instructions Instructions: Heart Healthy Diet (DC), Hyperlipidemia (DC) Follow Up With: Rowan Diaz MD [Primary Care Provider] - Mainor Marin DO [Partnered Physician] - Sara Estevez DO [Partnered Physician] - Additional Instructions: Follow-up appointments: Follow-up with primary care provider within one to 2 weeks. Follow up with neurology within 2 weeks. Follow-up with cardiology within 1-2 weeks. Cardiology will call you with an appointment time and day. If you do not hear from them in the next few weeks please call them at [phone]. If there is not an appointment listed below, please call your physician and schedule a follow-up appointment. If you have congestive heart failure and your symptoms return, make an appointment with your physician. Medication List: Carry an up to date list of medications you are taking at all time. We have given you an updated medication list including any new medications that you have been prescribed. Please provide that list to your primary provider Symptoms: If your condition changes or you experience any of the following symptoms, notify your physician immediately: Unusual or worsening pain, fever, persistent nausea and vomiting, bleeding, increase in swelling (especially in your legs), sudden weight gain, extreme dizziness, chest pain, increased drainage or redness from a wound or incision. Go to the emergency department if you experience a problem with breathing. Weights: If you have a history of swelling or shortness of breath, weigh yourself daily and notify your physician if you have a weight gain of two or more pounds in one day or 5 or more pounds in a week. If you experience any of the warning signs for stroke: Sudden numbness or weakness of the face, arm or leg; especially on one side of the body, sudden confusion, trouble speaking or understanding, sudden trouble seeing in one or both eyes, sudden trouble walking, dizziness, loss of balance or coordination, sudden sever headache with no cause; Call 911 or go to the emergency room. Stroke is a medical emergency. Some risk factors for stroke: Age, cigarette smoking, diabetes, excessive alcohol consumption, family history , high blood pressure, overweight, physical inactivity, prior stroke, heart attack, diagnosis of carotid artery stenosis or other artery disease. If you smoke, STOP: Smoking or tobacco use significantly increases your risk of heart and lung disease. Your chance of disease greatly increases if you continue to smoke. For more information, call the [place] tobacco quit line for smoking cessation -NOW ( ) - Diet and Activity Activity: increase activity as tolerated Diet: low fat, low cholesterol, low salt diet Hospital course: Ms. Mcgill is a 66 year old female with past medical history of diabetes, hyperlipidemia, hypertension. Patient presented to [place] emergency department for increased tremor. Patient has had a chronic tremor since last October and follows with neurology Dr. Marin outpatient. On the day of presentation, her tremor had gotten worse and then her jaw began to shake so much that it was difficult for her to talk. While at the emergency department, her troponin was noted to be elevated. She denied chest pain, shortness of breath, nausea or vomiting. She denied palpitations or diaphoresis. Patient was transferred [facility] and admitted to the hospitalist service for further evaluation and management. Head CT unremarkable. Troponins peaked at 0.27. She was on a heparin drip during this admission. Cardiology was brought on board who initially offered the patient a left heart catheter. Patient's CODE STATUS is DNR CCA DNI and she stated that under no circumstances which she going to change his CODE STATUS. She also stated she did not want to do a heart catheter. She had an echocardiogram which was unremarkable with ejection fraction of 65%. Patient continued to deny chest pain or shortness of breath throughout this admission. Patient was noted to be extremely anxious and tearful at times during this admission. She states that she has a lengthy history of panic attacks and uncontrolled anxiety. She was offered clonazepam by neurology however patient refused stating that "they had trouble getting the off that in the past." Unclear on NSTEMI versus demand ischemia secondary to stress and panic attacks. She was again discussed with the hospitalist and with the yarn weigher on the risks versus benefits of the heart catheter and with a normal echocardiogram, she decided to proceed without the heart catheter. Patient's daughter was upset that the patient's daughter was reminded that is her mother's decision to make. Patient was alert and oriented 3 throughout this admission. Regarding her tremor, during this admission, her tremor would increase in times of stress and when she would speak about it. Patient with speak normally and then start to discuss her tremor at which time her tremor would appear in her jaw would begin to quiver. No seizure-like activity noted. Neurology cleared her for outpatient follow-up and he will increase her primidone on an outpatient basis. Regarding further risk factor stratification, patient's lipid panel was abnormal and she is on gemfibrozil and the low-dose statin was added to her regimen. She was also started on a baby aspirin. Her blood pressure was controlled when she was calm but she would become hypertensive when she was emotionally upset and shaking. No changes were made to her antihypertensive medications, recommend further treatment of her anxiety. She stated that she wanted to stop smoking but declined counseling and declines nicotine replacement therapy. She was discharged home in stable condition with close outpatient follow-up recommended. Head CT impressions from [place] ER: No acute intracranial abnormality. Trace paranasal sinus disease. Echocardiogram with saline contrast impressions: LVEF 65%. Normal left ventricular size and systolic function. Moderate concentric left ventricular hypertrophy. There is evidence of mild diastolic dysfunction of the left ventricle. Normal right ventricular size and function. No significant valvular dysfunction. No pulmonary hypertension. - Time Spent with Patient Total time spent providing and/or coordinating discharge services: - Constitutional Vitals: Temp Pulse Resp BP Pulse Ox 98.0 F 59 17 174/74 96 03/27/17 07:42 03/27/17 07:42 03/27/17 07:42 03/27/17 07:42 03/27/17 07:42 General appearance: Present: mild distress (emotional), A&O X 3, pleasant, answers questions appropriately - Head Head exam: Present: atraumatic, normocephalic - Eye Eye exam: Present: PERRL, conjuntiva pink, sclera anicteric Pupils: Present: PERRL - Neck Neck exam general surgery: Present: supple, trachea midline. Absent: lymphadenopathy - Respiratory Respiratory exam: Present: CTAB. Absent: accessory muscle use, rales, respiratory distress, rhonchi, wheezes - Cardiovascular Cardiovascular exam: Present: RRR, +S1, +S2. Absent: diastolic murmur, gallop, rubs, systolic murmur - GI/Abdominal GI/Abdominal exam: Present: normal bowel sounds, soft, no peritoneal signs. Absent: distended, tenderness - Extremities Exam Extremities exam: Present: warm, radial pulses palpable and symetrical. Absent : calf tenderness, cyanotic, pedal edema - Neurological Exam Neurological exam: Present: alert, CN II-XII intact, oriented X3, no focal deficits, strengths equal and symetr throughout. Absent: pronater drift, facial droop, speech deficit - Expanded Neurological Exam Neurological exam expanded: Present: tremor Patient oriented to: Present: person, place, time Speech: Present: expressive aphasia (When upset), fluid speech Neuro motor strength exam: LUE: 5, RUE: 5, LLE: 5, RLE: 5 Coma Scale Eye Opening: Spontaneous Coma Scale Motor Response: Obeys Commands Coma Scale Verbal Response: Oriented Coma Scale Total: 15 - Skin Skin exam: Present: dry, intact, pallor, warm
--- NOTE | 2017-03-27 13:07 | Cardiology Progress Note ---
Date of Encounter: 03/27/17 Time of Encounter: 11:30 Assessment and Plan (1) Elevated troponin I level Current Visit: No Status: Acute Ms. Mcgill's troponin peaked at 0.27 and has since downtrended. She has not had any chest pain and there are no concerning ECG findings. We attempted to discuss a LHC yesterday but patient was sleeping through most of the conversation. This morning, the patient was awake, alert and conversant. She does have risk factors for CAD and a LHC would not be an unreasonable approach given the elevation of troponin which we discussed. However, the patient does not want to reverse her code status for the procedure and therefore has declined undergoing LHC after understanding the risks vs benefits vs alternatives. Importantly, her LV function remains normal, she has not had chest pain and her ECG is without ischemic findings. Recommend control of risk factors. Smoking cessation was strongly encouraged. I recommend the addition of low dose statin for dyslipidemia. Continue aspirin. Recommend outpatient follow up. Will sign off. (2) Hypertension Current Visit: Yes Status: Chronic Echo demonstrates moderate concentric hypertrophy suggesting longstanding hypertensive heart disease. Recommend more aggressive control of blood pressure. Qualifiers: Hypertension type: essential hypertension Qualified Code(s): I10 - Essential (primary) hypertension Discussion w patient/family: The assessment and plan as outlined above was discussed with the patient and/or family members who expressed understanding and agreement. All questions were answered. Thank you for involving us in the care of your patient. Please call with any questions. Subjective Principal diagnosis: Elevated Troponin Interval history: Ms. Mcgill is awake, alert and conversant this morning. She has no complaints of chest pain and no new complaints overnight. Objective Vital Signs Reviewed General: Conversant, No Apparent Distress HEENT: Mucus Membranes Moist Neck: No JVD Cardiac: Reg Rate and Rhythm, Normal S1 and S2, No Murmur Lungs: Normal Breath Sounds, No Wheeze, Rales, Rhonchi Neuro: Alert and responsive, No focal deficits noted Abdomen: Soft, Other (bowel sounds present) Extremities: No Edema Results 03/27/17 05:16 03/27/17 05:16 Lab Results 03/26/17 03/26/17 03/27/17 14:02 20:34 05:16 WBC 8.0 Hgb 14.1 Hct 41.6 Plt Count 209 APTT 42.4 H 39.5 H Sodium Potassium Chloride Carbon Dioxide BUN Creatinine Glucose Calcium 03/27/17 03/27/17 05:16 05:16 WBC Hgb Hct Plt Count APTT 50.4 H Sodium 141 Potassium 4.0 Chloride 109 Carbon Dioxide 24 BUN 14 Creatinine 0.71 Glucose 114 H Calcium 8.9 - Imaging and Cardiology Echo: report reviewed, image reviewed - EKG Interpretation EKG results cardiology: other (24h telemetry demonstrates average HR 70 bpm with sinus arrhythmia and occasional PVCs) Consult Discharge Plan - Plan Instructions: Heart Healthy Diet (DC), Hyperlipidemia (DC) Additional Instructions: Follow-up appointments: Follow-up with primary care provider within one to 2 weeks. Follow up with neurology within 2 weeks. Follow-up with cardiology within 1-2 weeks. Cardiology will call you with an appointment time and day. If you do not hear from them in the next few weeks please call them at [phone]. If there is not an appointment listed below, please call your physician and schedule a follow-up appointment. If you have congestive heart failure and your symptoms return, make an appointment with your physician. Medication List: Carry an up to date list of medications you are taking at all time. We have given you an updated medication list including any new medications that you have been prescribed. Please provide that list to your primary provider Symptoms: If your condition changes or you experience any of the following symptoms, notify your physician immediately: Unusual or worsening pain, fever, persistent nausea and vomiting, bleeding, increase in swelling (especially in your legs), sudden weight gain, extreme dizziness, chest pain, increased drainage or redness from a wound or incision. Go to the emergency department if you experience a problem with breathing. Weights: If you have a history of swelling or shortness of breath, weigh yourself daily and notify your physician if you have a weight gain of two or more pounds in one day or 5 or more pounds in a week. If you experience any of the warning signs for stroke: Sudden numbness or weakness of the face, arm or leg; especially on one side of the body, sudden confusion, trouble speaking or understanding, sudden trouble seeing in one or both eyes, sudden trouble walking, dizziness, loss of balance or coordination, sudden sever headache with no cause; Call 911 or go to the emergency room. Stroke is a medical emergency. Some risk factors for stroke: Age, cigarette smoking, diabetes, excessive alcohol consumption, family history , high blood pressure, overweight, physical inactivity, prior stroke, heart attack, diagnosis of carotid artery stenosis or other artery disease. If you smoke, STOP: Smoking or tobacco use significantly increases your risk of heart and lung disease. Your chance of disease greatly increases if you continue to smoke. For more information, call the [place] tobacco quit line for smoking cessation 1-169- -NOW ( ) Referrals: Rowan Diaz MD [Primary Care Provider] - Mainor Marin DO [Partnered Physician] - 04/08/17 3:15 pm Sara Estevez DO [Partnered Physician] - Prescriptions: Aspirin Enteric Coated [Aspirin EC] 81 mg PO DAILY #30 tablet. Atorvastatin Calcium [Lipitor] 20 mg PO HS #30 tablet
== END 2017-03-27 14:13 | disposition home or self-care (01) ==
LOC: 3BNU
PROVIDERS: ADMIT Hospitalist; ATTEND Nurse Practitioner Family